=== PATIENT | male | born 1950 | race Caucasian/White ===

== ENCOUNTER 2016-11-09 02:37 | Emergency (ER) | payer BC, OTHER ==
[~2016-11-09] VITALS: Ht 170.2 cm; Wt 83.0 kg
[~2016-11-09 02:37] MED LIST: ACET-1138 PO; ASPEC325 PO; ATOR-26 PO; EZET10TA63 PO; LISI10TA PO; RXC5 PO; TAMS0.4C38 PO
[2016-11-09 02:40] VITALS: Ht 170.2 cm; Wt 83.0 kg
[2016-11-09] MEDS ORDERED: ONDANSETRON INJ 2 MG/ML 2 ML VIAL IV STA ×2 (02:50→03:35)
[2016-11-09] MEDS ORDERED: MoRPHine SULFATE 4 MG/ML 1 ML CARP\\VIAL IV STA ×2 (02:50→03:35)
[2016-11-09 02:51] VITALS: TEMP 36.6; O2SAT 100
--- NOTE | 2016-11-09 02:57 | EMERGENCY ROOM VISIT NOTE ---
History Report prepared by Yukiibulysses: Alyson Villa Under the Supervision of: Carter RomanoO. First contact with patient: 02:43 Chief Complaint: FLANK PAIN Stated Complaint: RIGHT SIDE PAIN,HAD COLONOSCOPY TODAY History of Present Illness The patient is a 66 year old male who presents to the Emergency Room with complaints of improved right upper quadrant abdominal pain starting about 20 minutes ago. He reports a sudden onset of his pain. He felt lightheaded and nauseated from the pain but denies vomiting. Prior to going to sleep, the patient had some back pain which was different from his current pain. He currently rates a pain intensity of 6-8/10 which has improved from the initial pain intensity of 10+/10. He had routine screening colonoscopy earlier today which showed diverticulosis but was otherwise negative. He did not have any pain after the colonoscopy. The patient denies fevers, chills, urinary symptoms , issues with bowel movement, or any other complaints. Source of History: patient Onset: about 20 minutes ago Position: abdomen (RUQ) Symptom Intensity: 6-8/10 currently Timing: other (improved) Associated Symptoms: + nausea, No chills, No fevers, No urinary symptoms, No vomiting Review of Systems See HPI for pertinent positives and negatives. A total of ten systems were reviewed and were otherwise negative. Past Medical & Surgical Medical Problems: (1) Left Knee DJD Family History Patient reports no known family medical history. Social History Smoking Status: Never Smoker Marital Status: Occupation Status: employed Current/Historical Medications Scheduled Aspirin (Aspirin Ec), 81 MG PO DAILY Atorvastatin (Lipitor), 80 MG PO HS Ezetimibe (Zetia), 10 MG PO HS Lisinopril (Prinivil), 10 MG PO HS Tamsulosin Hcl (Flomax), 0.4 MG PO QAM Allergies Coded Allergies: No Known Allergies (Unverified , 11/09/16) Physical Exam Vital Signs Date Time Temp Pulse Resp B/P Pulse Ox O2 Delivery O2 Flow Rate FiO2 11/09/16 05:00 74 18 163/89 99 Room Air 11/09/16 04:02 56 18 141/89 100 Room Air 11/09/16 02:53 58 11/09/16 02:51 100 Room Air 11/09/16 02:51 36.6 11/09/16 02:40 59 20 151/86 99 Room Air Physical Exam GENERAL: Awake, alert, well-appearing, in no distress HENT: Normocephalic, atraumatic. Oropharynx unremarkable. EYES: Normal conjunctiva. Sclera non-icteric. NECK: Supple. No nuchal rigidity. FROM. No JVD. RESPIRATORY: Clear to auscultation. CARDIAC: Regular rate, normal rhythm. Extremities warm and well perfused. Pulses equal. ABDOMEN: Soft, non-distended. Mild tenderness to palpation in the right upper quadrant. No rebound or guarding. No masses. RECTAL: Deferred. MUSCULOSKELETAL: Chest examination reveals no tenderness. The back is symmetrical on inspection without obvious abnormality. There is no CVA tenderness to palpation. No joint edema. LOWER EXTREMITIES: Calves are equal size bilaterally and non-tender. No edema. No discoloration. NEURO: Normal sensorium. No sensory or motor deficits noted. SKIN: No rash or jaundice noted. Medical Decision & Procedures ER Provider Diagnostic Interpretation: CT: Radiology results as stated below per my review and radiologist interpretation CT ABDOMEN AND PELVIS The visualized lower thorax is unremarkable. The liver, gallbladder, spleen, pancreas and left adrenal gland are unremarkable. Right adrenal gland lesion measuring up to 4.2 cm which is incompletely characterized. In the absence of prior imaging demonstrates stability, consider nonemergent adrenal protocol CT or MRI for further catheterization. Cyst within the left kidney. Otherwise, the kidneys, ureters, and urinary bladder are unremarkable. Mild enlargement of the prostate gland. Noninflamed colonic diverticulosis. The appendix is not visualized. No free fluid. No free air. No acute osseous abnormalities. Radiologist: Mauro Madrigal MD Laboratory Results 11/09/16 02:50 Red Blood Count 4.64, Mean Corpuscular Volume 89.9, Mean Corpuscular Hemoglobin 30.2, Mean Corpuscular Hemoglobin Concent 33.6, Mean Platelet Volume 9.6, Neutrophils (%) (Auto) 45.9, Lymphocytes (%) (Auto) 31.5, Monocytes (%) (Auto) 18.4, Eosinophils (%) (Auto) 3.6, Basophils (%) (Auto) 0.3, Neutrophils # (Auto ) 3.43, Lymphocytes # (Auto) 2.35, Monocytes # (Auto) 1.37, Eosinophils # (Auto ) 0.27, Basophils # (Auto) 0.02 11/09/16 02:50 Test 11/09/16 02:50 White Blood Count 7.46 K/uL (4.8-10.8) Red Blood Count 4.64 M/uL (4.7-6.1) Hemoglobin 14.0 g/dL (14.0-18.0) Hematocrit 41.7 % (42-52) Mean Corpuscular Volume 89.9 fL (80-100) Mean Corpuscular Hemoglobin 30.2 pg (25-34) Mean Corpuscular Hemoglobin Concent 33.6 g/dl (32-36) Platelet Count 219 K/uL (130-400) Mean Platelet Volume 9.6 fL (7.4-10.4) Neutrophils (%) (Auto) 45.9 % Lymphocytes (%) (Auto) 31.5 % Monocytes (%) (Auto) 18.4 % Eosinophils (%) (Auto) 3.6 % Basophils (%) (Auto) 0.3 % Neutrophils # (Auto) 3.43 K/uL (1.4-6.5) Lymphocytes # (Auto) 2.35 K/uL (1.2-3.4) Monocytes # (Auto) 1.37 K/uL (0.11-0.59) Eosinophils # (Auto) 0.27 K/uL (0-0.5) Basophils # (Auto) 0.02 K/uL (0-0.2) RDW Standard Deviation 48.7 fL (36.4-46.3) RDW Coefficient of Variation 14.7 % (11.5-14.5) Immature Granulocyte % (Auto) 0.3 % Immature Granulocyte # (Auto) 0.02 K/uL (0.00-0.02) Anion Gap 8.0 mmol/L (3-11) Est Creatinine Clear Calc Drug Dose 68.1 ml/min Estimated GFR () 80.6 Estimated GFR (Non- 69.6 BUN/Creatinine Ratio 25.8 (10-20) Calcium Level 8.5 mg/dl (8.5-10.1) Total Bilirubin 0.3 mg/dl (0.2-1) Direct Bilirubin < 0.1 mg/dl (0-0.2) Aspartate Amino Transf (AST/SGOT) 30 U/L (15-37) Alanine Aminotransferase (ALT/SGPT) 37 U/L (12-78) Alkaline Phosphatase 61 U/L (45-117) Total Protein 6.9 gm/dl (6.4-8.2) Albumin 3.9 gm/dl (3.4-5.0) Lipase 174 U/L (73-393) Laboratory results reviewed by me Medications Administered Medications (Trade) Dose Ordered Sig/Deandre Route Start Time Stop Time Status Last Admin Dose Admin Morphine Sulfate (MoRPHine SULFATE INJ) 4 mg NOW STAT IV 11/09/16 02:50 11/09/16 02:52 DC 11/09/16 02:57 4 MG Ondansetron HCl (Zofran Inj) 4 mg NOW STAT IV 11/09/16 02:50 11/09/16 02:52 DC 11/09/16 02:57 4 MG Morphine Sulfate (MoRPHine SULFATE INJ) 4 mg NOW STAT IV 11/09/16 03:35 11/09/16 03:37 DC 11/09/16 03:54 4 MG Ondansetron HCl (Zofran Inj) 4 mg NOW STAT IV 11/09/16 03:35 11/09/16 03:37 DC 11/09/16 03:54 4 MG Simethicone (Mylicon Chew Tab) 80 mg NOW STAT PO 11/09/16 04:30 11/09/16 04:32 DC 11/09/16 04:37 80 MG Al Hydrox/Mg Hydrox/Simethicone (Maalox Max Susp) 30 ml NOW STAT PO 11/09/16 04:30 11/09/16 04:32 DC 11/09/16 04:37 30 ML Dicyclomine HCl (Bentyl Inj) 20 mg NOW ONCE IM 11/09/16 04:45 11/09/16 04:46 DC 11/09/16 04:59 20 MG ECG Indication: abdominal pain Rate (beats per minute): 70 Rhythm: sinus rhythm Findings: PVC (occasional), no ectopy, other (normal axis) ED Course 0243: The patient was evaluated in room B03B. A complete history and physical exam was performed. 0250: Zofran Inj 4 mg IV, Morphine Sulfate 4 mg IV 0335: Zofran Inj 4 mg IV, Morphine Sulfate 4 mg IV 0426: I reevaluated the patient who continues to complain of the pain. 0430: Maalox Max Susp 30 ml PO, Simethicone 80 mg PO 0445: Bentyl Inj 20 mg IM 0500: I reevaluated the patient. Discussed results and discharge instructions: He verbalized understanding and agreement. The patient is ready for discharge. Medical Decision Differential diagnosis includes but is not limited to kidney stone, colitis, gas pain, bowel perforation, pain status post colonoscopy. Patient was given IV opiates, simethicone, Maalox, Bentyl. On repeat examination he stated that he felt improved. Patient's CT did not show any evidence of perforated bowel. I discussed the evaluation including the lab work as well as a CAT scan with the patient patient's at bedside. Patient states that he was feeling much improved at 5 AM and was able to be discharged Impression Primary Impression: Abdominal cramps Scribe Attestation The scribe's documentation has been prepared under my direction and personally reviewed by me in its entirety. I confirm that the note above accurately reflects all work, treatment, procedures, and medical decision making performed by me. Departure Information Dispostion Home / Self-Care Referrals Toya Ponce M.D. (PCP) Forms HOME CARE DOCUMENTATION FORM, IMPORTANT VISIT INFORMATION Patient Instructions Abdominal Pain, My [facility] Additional Instructions Continue taking simethicone for gas pain return for increased pain or for any concerns
[2016-11-09] MEDS ORDERED: OPTIRAY 320 IV PRN (03:00)
[2016-11-09 03:04] LABS: BASO % 0.3 %; BASO ABS # 0.02 K/uL (0-0.2); COMPLETE YES; EOS % 3.6 %; HEMATOCRIT 41.7 % (42-52); IG% 0.3 %; LYMPH % 31.5 %; LYMPH ABS # 2.35 K/uL (1.2-3.4); MEAN CELL VOLUME 89.9 fL (80-100); MEAN CORPUSCULAR HEMOGLOBIN 30.2 pg (25-34); MEAN CORPUSCULAR HGB CONC 33.6 g/dl (32-36); MEAN PLATELET VOLUME 9.6 fL (7.4-10.4); MONO % 18.4 %; NEUT % 45.9 %; PLATELET COUNT 219 K/uL (130-400); RED BLOOD COUNT 4.64 M/uL (4.7-6.1); WHITE BLOOD COUNT 7.46 K/uL (4.8-10.8)
[2016-11-09 03:28] LABS: ALT/SGPT 37 U/L (12-78); AST/SGOT 30 U/L (15-37); BLOOD UREA NITROGEN 28 mg/dl (7-18); BUN/CREATININE RATIO 25.8 (10-20); CALCIUM 8.5 mg/dl (8.5-10.1); CARBON DIOXIDE 28 mmol/L (21-32); CHLORIDE 107 mmol/L (98-107); GLUCOSE 123 mg/dl (70-99); POTASSIUM 4.1 mmol/L (3.5-5.1); SODIUM 143 mmol/L (136-145)
[2016-11-09 03:31] LABS: ALKALINE PHOSPHATASE 61 U/L (45-117)
[2016-11-09] MEDS ORDERED: ASPI81TA28 PO (03:49)
[2016-11-09] MEDS ORDERED: SIMETHICONE 80 MG CHEW PO STA (04:30)
[2016-11-09] MEDS ORDERED: ALUMINUM/MAGNESIUM/SIMETH (MAALOX MAX) 30 ML UDC PO STA (04:30)
[2016-11-09] MEDS ORDERED: DICYCLOMINE HCL 10 MG/ML 2 ML AMP IM ONE (04:45)
[2016-11-09 05:00] VITALS: BP 163/89; PULSE 74; O2SAT 99
--- NOTE | 2016-11-09 07:00 | DIAGNOSTIC IMAGING REPORT ---
ABDOMEN AND PELVIS CT WITH IV CONTRAST CT DOSE: 370.32 mGy.cm HISTORY: Flank pain pain TECHNIQUE: Multiaxial CT images of the abdomen and pelvis were performed following the use of intravenous contrast. COMPARISON STUDY: None. FINDINGS: Lung bases are clear. Liver is uniform throughout. Right adrenal mass measuring 3.8 x 2.4 cm. The left adrenal is unremarkable. There is a left renal cyst. Kidneys negative for hydronephrosis. Bowel pattern is considered nonobstructive throughout. Mild chronic colonic diverticulosis. No evidence for acute diverticulitis. IMPRESSION: 1. Right adrenal mass with multi phase CT evaluation of the adrenals recommended as follow-up. 2. Mild scattered colonic diverticulosis. 3. Study is otherwise negative Electronically signed by: Estuardo Casanova M.D. 11/09/2016 6:59 AM Dictated Date/Time: 11/09/2016 6:56 AM
== END 2016-11-09 05:30 | disposition home or self-care (01) ==
LOC: C.EDB 02:38
DX: R10.11 Right upper quadrant pain (principal); Z79.82 Long term (current) use of aspirin; Z79.899 Other long term (current) drug therapy

== ENCOUNTER → 2016-11-16 | Outpatient (CLI) | payer BC ==
[~2016-11-16] MED LIST changes: -ACET-1138 PO; -ASPEC325 PO; +ASPI81TA28 PO; +GADAVIST IV PRN; -RXC5 PO
--- NOTE | 2016-11-16 10:30 | DIAGNOSTIC IMAGING REPORT ---
ABDOMINAL MRI WITH AND WITHOUT INTRAVENOUS CONTRAST CLINICAL HISTORY: ABNORMAL ABDOMINAL CT SCAN. Follow-up adrenal mass. TECHNIQUE: Multiplanar multisequence MRI of the abdomen was performed both before and after the intravenous administration of contrast to evaluate the adrenal glands. COMPARISON STUDY: Abdomen and pelvis CT 11/09/2016. FINDINGS: There is a 4.0 x 2.8 cm right adrenal gland lesion. This demonstrates slightly thickened peripheral enhancement. There is a enhancing septation and a 2.0 x 1.1 cm enhancing intramural nodule anteriorly. This is not consistent with a benign adrenal adenoma. Normal left adrenal gland. A 2.1 cm cyst within the upper pole of the left kidney. The visualized liver, spleen, pancreas, right kidney, and gallbladder are unremarkable. No retroperitoneal lymphadenopathy. IMPRESSION: A 4.0 x 2.8 cm right adrenal gland mass which is not consistent with a benign adrenal adenoma as described above. This may represent a pheochromocytoma or adrenal cortical carcinoma. Surgical consultation is recommended. Electronically signed by: Simon Hines M.D. 11/16/2016 10:28 AM Dictated Date/Time: 11/16/2016 10:17 AM
== END | disposition home or self-care (01) ==
LOC: C.MRIBC 08:32
PROVIDERS: ATTEND Family Medicine
DX: R93.5 Abnormal findings on diagnostic imaging of other abdominal regions, including retroperitoneum (principal); E27.9 Disorder of adrenal gland, unspecified

== ENCOUNTER → 2017-03-01 | Outpatient (CLI) | payer BC ==
[~2017-03-01] MED LIST changes: -GADAVIST IV PRN
--- NOTE | 2017-03-01 12:11 | DIAGNOSTIC IMAGING REPORT ---
PET/CT SKULL-THIGH HISTORY: Adrenal neoplasm MALIGNANT NEOPLASM TECHNIQUE: PET/CT was performed from the base of the skull through the pelvis following the intravenous administration of 15.4 mCi of F18-FDG. Non-contrast CT imaging was performed over the same range without breath-hold for attenuation correction of PET images and anatomic correlation, but not for primary interpretation as it is not of standard diagnostic quality. CT DOSE: COMPARISON: MRI abdomen 11/16/2016. CT abdomen and pelvis 11/09/2016 FINDINGS: HEAD AND NECK: No significant metabolically active adenopathy. Oral and hypopharyngeal metabolic activity about the secondary to patient motion. Progressive increased activity lower cervical spine. CHEST: Several metabolically active nodes in the right hilar and mid mediastinal region. Largest node has SUV characteristics of 7.7. Minimal dimension is 1.7 cm at this site. Several additional right hilar and precarinal nodes demonstrating SUVs of 6.5. Maximum dimensions very from 1.0 to 1.4 cm. Physiologic activity within the myocardium. Metabolically active subcarinal adenopathy with SUV characteristics to 5.9 measuring 1.7 cm. 7 mm spiculated nodular density peripheral aspect right midlung showing no significant increase in activity. This may be secondary to the small size of the nodular density in question. Abdomen and pelvis: Several metabolically active ribs in the right and to lesser extent left hemithorax. Several foci of increased metabolic activity involving the liver superior right hepatic dome with the largest lesion measures 1.2 cm with SUVs extend to 4.3. Several smaller metabolically active lesions of the superior right hepatic lobe are present. Prior resection of the patient's right adrenal nodule. Possible low-level metabolically active left adrenal nodule with SUV characteristics of 2.7. Several foci of increased metabolic activity involving the thoracolumbar spine as well as right hemipelvis and left central sacrum. Activity characteristics extend to 4.8. Small left posterior bladder diverticulum. MUSCULOSKELETAL: Findings of widespread bony metastatic disease throughout the spine, pelvis, and iliac bone regions. IMPRESSION: 1. Findings of widespread metastatic disease involving the liver, chest, mediastinum, and to lesser extent periaortic regions. 2. Widespread bony metastatic disease as discussed. 3. Pulmonary nodularity in the right demonstrating no significant increase in activity possibly secondary to the small maximum dimensions of the lesions. 4. Possible small metabolically active lesion left adrenal gland. The above report was generated using voice recognition software. It may contain grammatical, syntax or spelling errors. Electronically signed by: Estuardo Casanova M.D. 03/01/2017 12:09 PM Dictated Date/Time: 03/01/2017 11:49 AM
== END | disposition home or self-care (01) ==
LOC: C.PET 08:48
PROVIDERS: ATTEND Urology
DX: C80.1 Malignant (primary) neoplasm, unspecified (principal); C79.72 Secondary malignant neoplasm of left adrenal gland; C78.7 Secondary malignant neoplasm of liver and intrahepatic bile duct; C79.89 Secondary malignant neoplasm of other specified sites; C78.1 Secondary malignant neoplasm of mediastinum; C79.51 Secondary malignant neoplasm of bone; R91.8 Other nonspecific abnormal finding of lung field

== ENCOUNTER → 2017-03-16 | Outpatient (CLI) | payer BC ==
--- NOTE | 2017-03-16 14:10 | DIAGNOSTIC IMAGING REPORT ---
C-SPINE ROUTINE 4 OR 5 VIEWS CLINICAL HISTORY: Left shoulder pain. Possible radiculopathy. COMPARISON STUDY: No previous studies for comparison. FINDINGS: There are advanced multilevel degenerative changes. The prevertebral soft tissues are normal. There is uncovertebral joint spurring with multilevel foraminal narrowing. IMPRESSION: 1. No acute fractures or traumatic subluxations 2. Advanced multilevel degenerative changes with multilevel foraminal narrowing Electronically signed by: Preston Andre M.D. 03/16/2017 2:09 PM Dictated Date/Time: 03/16/2017 2:08 PM
--- NOTE | 2017-03-16 14:12 | DIAGNOSTIC IMAGING REPORT ---
LEFT SCAPULA 2 VIEWS CLINICAL HISTORY: Left shoulder pain. FINDINGS: 2 views of the left scapula are obtained. No prior studies are available for comparison at the time of dictation. The skeletal structures are well mineralized. There is no radiographic evidence of left scapular fracture. Productive degenerative changes seen at the acromioclavicular joint. The overlying soft tissues are normal as imaged. The visualized left lung parenchyma appears clear. IMPRESSION: There is no radiographic evidence of left scapular fracture. Electronically signed by: Les Barrios M.D. 03/16/2017 2:11 PM Dictated Date/Time: 03/16/2017 2:09 PM
--- NOTE | 2017-03-16 14:27 | DIAGNOSTIC IMAGING REPORT ---
L RIBS UNILATERAL WITH PA CHEST (5 views) CLINICAL HISTORY: DYSPHAGIA,LEFT SHOULDER PAIN COMPARISON STUDY: Chest x-ray dated 04/28/2016 FINDINGS: Erect chest reveals no pneumothorax. No left-sided rib fractures are identified. No destructive lesions are visualized on conventional radiographic imaging. IMPRESSION: No left-sided rib fractures identified. Electronically signed by: Preston Andre M.D. 03/16/2017 2:25 PM Dictated Date/Time: 03/16/2017 2:24 PM
== END | disposition home or self-care (01) ==
LOC: C.RAD1850 13:42
PROVIDERS: ATTEND Family Medicine
DX: M25.519 Pain in unspecified shoulder (principal); R13.10 Dysphagia, unspecified; M89.8X8 Other specified disorders of bone, other site

== ENCOUNTER → 2017-03-20 | Outpatient (CLI) | payer BC ==
--- NOTE | 2017-03-20 08:42 | DIAGNOSTIC IMAGING REPORT ---
(BARIUM SWALLOW) ESOPHAGUS CLINICAL HISTORY: 66 years-old Male presenting with trouble swallowing, food sticking in the upper esophagus for one week, voice change, coughing. TECHNIQUE: A standard air contrast barium esophagram is performed. Multiple spot images of the esophagus are acquired both upright and prone. COMPARISON: None. FINDINGS: The patient was able to ingest barium, although delayed passage of barium through the upper esophagus was observed. A prominent intermittent point of constriction at the level of C5-6 noted, most prominently along the posterior wall. No evidence of a diverticulum. Silent deep penetration and aspiration was observed, which prematurely terminated the examination. The remainder of the esophagus demonstrated a normal mucosal pattern. No evidence of a mass lesion. The gastroesophageal junction distended normally. Fluoroscopy dosage (mGy): Not available. Fluoroscopy time: 2 minutes. Number of fluoroscopic spot images: 27. IMPRESSION: 1. 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 This can be a idiopathic and asymptomatic, secondary to cricopharyngeal muscle spasm/aplasia, or cricopharyngeus muscle hypertrophy and/or fibrosis. Direct visualization could be considered as clinically warranted. 2. Overall limited study. This limits the gastric sensitivity for gastroesophageal reflux. 3. Silent aspiration. A dedicated swallow evaluation is recommended. The report will be called/faxed according to standard departmental protocol. Electronically signed by: Saroj Martinez M.D. 03/20/2017 8:41 AM Dictated Date/Time: 03/20/2017 8:18 AM
== END | disposition home or self-care (01) ==
LOC: C.RAD 07:58
PROVIDERS: ATTEND Family Medicine
DX: R13.10 Dysphagia, unspecified (principal)

== ENCOUNTER → 2017-04-11 | Outpatient (CLI) | payer BC ==
[~2017-04-11] MED LIST changes: +GADAVIST IV PRN
--- NOTE | 2017-04-11 13:59 | DIAGNOSTIC IMAGING REPORT ---
MRI OF THE BRAIN COMBO CLINICAL HISTORY: Lung cancer. COMPARISON STUDY: No priors. TECHNIQUE: MRI of the brain was performed utilizing various T1 and T2-weighted sequences in the axial, sagittal, and coronal planes. Contrast-enhanced sequences were acquired following the administration of 7.6 cc of Gadavist. FINDINGS: Brain parenchyma: There is mild patchy subcortical and periventricular microangiopathic disease. There are numerous (greater than 10) enhancing lesions identified throughout the brain parenchyma consistent with multifocal metastatic disease. The largest lesion measures 1.3 cm as seen in the anterior right temporal lobe on axial postcontrast image #8. There is surrounding edema seen on the FLAIR sequence, and trace hemorrhage is likely identified within this lesion. Additional franchise sales representative lesions are seen in the left frontal lobe measuring 5 mm on image #15, in the left parietal white matter measuring 5 mm on image #15, and in the right cerebellar peduncle image #8 measuring 8 mm. There is no significant mass effect or midline shift. There is no restricted diffusion to suggest acute ischemia. No extra-axial fluid collection is seen. The cerebellar tonsils are normal in configuration. Ventricles, sulci, and cisterns: Normal in configuration. Pituitary and sella: Unremarkable. Intracranial vasculature: Normal flow voids are maintained at the skull base. Orbits: The bony orbits are grossly intact. Orbital contents are normal in appearance. Sinuses and mastoids: Clear. Calvarium: No destructive calvarial lesion is seen. Cervical cord: Partially visualized cervical spinal cord is normal in morphology and signal intensity. IMPRESSION: 1. Findings are consistent with multifocal intracranial metastatic disease as above. 2. There is likely trace hemorrhage within the largest lesion located in the right temporal lobe with surrounding edema. 3. There is no significant mass effect or evidence of acute ischemia. Electronically signed by: Les Barrios M.D. 04/11/2017 1:58 PM Dictated Date/Time: 04/11/2017 1:50 PM
== END | disposition home or self-care (01) ==
LOC: C.MRIBC 12:31
PROVIDERS: ATTEND Internal Medicine Hematology & Oncology
DX: C34.00 Malignant neoplasm of unspecified main bronchus (principal)

== ENCOUNTER → 2017-04-18 | Outpatient (CLI) | payer BC ==
--- NOTE | 2017-04-18 09:38 | DIAGNOSTIC IMAGING REPORT ---
CERVICAL SPINE COMBO HISTORY: Neoplasm MALIGNANT NEOPLASM OF BRAIN TECHNIQUE: Multiplanar multisequence MRI of the cervical spine was performed both before and after the use of intravenous contrast. COMPARISON STUDY: PET scan dated 03/01/2017 FINDINGS: Signal characteristics indicate generalized degenerative change throughout the entire cervical region. Sagittal T1 images demonstrate decreased signal with postcontrast enhancement of the mid and anterior arch of C1. This shows evidence of postcontrast enhancement. There is considerable degenerative disc changes throughout. Partial postcontrast enhancement is identified which may be consistent with degenerative etiology. Postcontrast sagittal images demonstrate multiple nodular foci of enhancement within the spinal canal throughout the entire cervical region. The largest is immediately posterior to the C6 vertebral body having maximum cephalocaudal dimension of 10 mm with a maximum anterior to posterior dimension of 6 mm. Transaxial images demonstrate this enhancing focus to be within the anterior aspect of the cervical cord specifically. Multiple punctate foci of increased signal are identified within the surface of the cervical cord throughout the entire cervical region. These foci are several millimeters in maximum dimension and general measure 2 to 3 mm. Larger foci of increased signal are identified in the low cervical and upper thoracic region. These are concentrated at the C7-T1 level as well as at T2 and T4. Broad-based bulging disc are identified all levels of the cervical region with only mild impact upon the cervical cord. IMPRESSION: 1. Severe degenerative disc change at the entire cervical region with evidence for postcontrast enhancing nodules on the surface of the cervical cord from C1 through T2. 2. In addition, there is a lesion within the cervical cord at the C6 level measuring 10 x 6 mm. 3. Bony metastatic change involving the mid to anterior arch of C1, as well as most likely within the endplates of several vertebral bodies. 4. The paranasal consistent with that of diffuse metastatic disease involving all soft tissues of the cervical spine as well as bony structures of the cervical vertebral body structures. The above report was generated using voice recognition software. It may contain grammatical, syntax or spelling errors. Electronically signed by: Estuardo Casanova M.D. 04/18/2017 9:37 AM Dictated Date/Time: 04/18/2017 9:16 AM
== END | disposition home or self-care (01) ==
LOC: C.MRIBC 07:47
PROVIDERS: ATTEND Radiology Radiation Oncology
DX: C34.90 Malignant neoplasm of unspecified part of unspecified bronchus or lung (principal); C79.31 Secondary malignant neoplasm of brain

== ENCOUNTER → 2017-07-06 | Outpatient (CLI) | payer BC ==
--- NOTE | 2017-07-06 17:13 | DIAGNOSTIC IMAGING REPORT ---
BRAIN COMBO CLINICAL HISTORY: NEOPLASM OF BRAIN metastatic disease COMPARISON STUDY: 04/11/2017 TECHNIQUE: Utilizing a 1.5 Yaritza magnet and dedicated coil, multiplanar, multiecho imaging of the brain was performed pre and postcontrast administration. IV administration of 10.5 mL of Gadavist contrast was uneventful. FINDINGS: Findings of intracranial metastatic disease is considered improved. Multiple foci of increased signal throughout both cerebral hemispheres are stable to slightly diminished. The degree of postcontrast enhancement is diminished as well. Several metastatic foci primarily involving the cerebellum and pontine medullary region have diminished in size and/or resolved. There has been no interval increase in size or enhancement characteristics of a lesion previously described. Several small lesions within the cerebral hemispheres bilaterally have resolved. The periventricular foci are diminished in size by no last and 1.5 mm at each location. Intensity characteristics of enhancement are again diminished. The lesion previously measuring 1.3 cm medial right temporal lobe now measures 7 mm and again shows diminished enhancement characteristics. Potentially is a lesion of the inferior left temporal fossa well seen only on the transaxial images which is stable to improved. Ventricular system is midline. There is no significant edematous change. There is no midline shift. Focus of increased signal right temporal lobe centrally has diminished in prominence. IMPRESSION: 1. Improving intracranial metastatic change. 2. Diminished size, number of enhancing lesions, as well as enhancement characteristics of all lesions. 3. No evidence for new interval or progressive findings. The above report was generated using voice recognition software. It may contain grammatical, syntax or spelling errors. Electronically signed by: Estuardo Casanova M.D. 07/06/2017 5:12 PM Dictated Date/Time: 07/06/2017 5:03 PM
--- NOTE | 2017-07-06 17:25 | DIAGNOSTIC IMAGING REPORT ---
MRI OF THE CERVICAL SPINE WITH AND WITHOUT CONTRAST CLINICAL HISTORY: Lung cancer. Brain and cervical spinal metastases status post radiation therapy. COMPARISON: MRI of the cervical spine April 18, 2017. TECHNIQUE: Utilizing a 1.5 Yaritza magnet and dedicated coil, multiplanar, multiecho imaging of the cervical spine was performed before and after intravenous administration of 7 of Gadavist. FINDINGS: Alignment of the cervical spine is anatomic. Multiple Schmorl's nodes are noted within the cervical spine as well as the upper thoracic spine. Cervical cord signal and caliber are normal. The numerous enhancing intradural extramedullary lesions shown on MRI of April 18, 2017 are no longer visualized consistent with a treatment response. No abnormal enhancement within the cervical canal is noted on this examination. Paravertebral soft tissues are unremarkable. There is no suspicious marrow replacement within the cervical spine by MRI. Moderate multilevel degenerative disc disease and facet arthrosis is present. C2-C3: The central canal and neural foramen are patent. C3-C4: There is mild central canal narrowing due to disc bulge. There is severe right and moderate left neural foraminal stenosis due to facet arthrosis and uncovertebral hypertrophy. C4-C5: Moderate narrowing of the central canal is noted. Severe left and right neural foraminal stenosis is noted. C5-C6: There is moderate narrowing of the central canal. Severe left and moderate right neural foraminal stenosis is present. C6-C7: There is mild to moderate narrowing of the central canal. There is moderate bilateral neural foraminal stenosis C7-T1: The central canal and neural foramen are patent. IMPRESSION: 1. 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 No pathologic enhancement within the cervical canal on current exam. 2. Moderate multilevel degenerative disc disease. Moderate multilevel central canal stenosis with severe multilevel neural foraminal stenosis within the cervical spine. Electronically signed by: Aadlberto Camp M.D. 07/06/2017 5:24 PM Dictated Date/Time: 07/06/2017 5:07 PM
== END | disposition home or self-care (01) ==
LOC: C.MRI 15:24
PROVIDERS: ATTEND Radiology Radiation Oncology
DX: C79.31 Secondary malignant neoplasm of brain (principal)

== ENCOUNTER → 2017-10-23 | Outpatient (CLI) | payer BC ==
--- NOTE | 2017-10-23 09:41 | DIAGNOSTIC IMAGING REPORT ---
BRAIN COMBO CLINICAL HISTORY: 67 years-old Male presenting with lung cancer with brain and spinal cord metastases, status post radiation, evaluate treatment response. TECHNIQUE: Multisequence, multiplanar MR imaging of the brain was performed before and after the administration of intravenous contrast. IV contrast: 7.5 mL of Gadavist. COMPARISON: 07/06/2017. FINDINGS: Ventricles and sulci normal in size. Interval decrease in conspicuity of multifocal metastatic lesions. Faint enhancement again noted in the right anterior temporal lobe (series 19 image 8), right brachium pontis (series 19 image 7), left dorsal kavita (series 19 image 8), posterior left upper lobe (series 19 image 12), periventricular white matter at the atrium of the left lateral ventricle (series 19 image 15), left frontal lobe (series 19 image 15). Numerous additional sites of prior enhancement are no longer visualized. These sites have been marked on series 19. No new foci of abnormal enhancement. Periventricular white matter foci of T2/FLAIR hyperintensity is nonspecific and in part relates to metastatic disease. No mass effect or midline shift. No restricted diffusion to suggest acute ischemia. No hemorrhage. No extra-axial fluid collection. T2 skull base flow voids preserved. Minimal mucosal thickening in posterior ethmoid air cells. Bone marrow signal intensity within the calvarium within normal limits. IMPRESSION: 1. Continued interval decrease in conspicuity of multifocal enhancing metastatic lesions. No new lesion to suggest progression of disease. No acute intracranial pathology. Electronically signed by: Saroj Martinez M.D. 10/23/2017 9:39 AM Dictated Date/Time: 10/23/2017 9:29 AM
--- NOTE | 2017-10-23 09:42 | DIAGNOSTIC IMAGING REPORT ---
MRI OF THE CERVICAL SPINE WITH AND WITHOUT CONTRAST CLINICAL HISTORY: Lung adenocarcinoma with brain and spinal cord metastases status post radiation therapy. COMPARISON: MRI of the cervical spine July 06, 2017. TECHNIQUE: Utilizing a 1.5 Yaritza magnet and dedicated coil, multiplanar, multiecho imaging of the cervical spine was performed before and after intravenous administration of 7.5 of Gadavist. FINDINGS: The MRI of the brain will be reported separately. Alignment of the cervical spine is anatomic. Multiple Schmorl's nodes are noted within the cervical spine as well as the upper thoracic spine. Cervical cord signal and caliber are normal. No intracanalicular masses or areas of pathologic enhancement are identified. Paravertebral soft tissues are unremarkable. There is no suspicious marrow replacement within the cervical spine by MRI. Moderate multilevel degenerative disc disease and facet arthrosis is present. C2-C3: The central canal and neural foramen are patent. C3-C4: There is mild central canal narrowing due to disc bulge. There is severe right and moderate left neural foraminal stenosis due to facet arthrosis and uncovertebral hypertrophy. C4-C5: Moderate narrowing of the central canal is noted. Severe left and right neural foraminal stenosis is noted. C5-C6: There is moderate narrowing of the central canal. Severe left and moderate right neural foraminal stenosis is present. C6-C7: There is mild to moderate narrowing of the central canal. There is moderate bilateral neural foraminal stenosis C7-T1: The central canal and neural foramen are patent. IMPRESSION: 1. No evidence of recurrent malignancy within the cervical spine by MRI. No pathologic enhancement within the cervical canal on current exam. 2. Moderate multilevel degenerative disc disease. Moderate multilevel central canal stenosis with severe multilevel neural foraminal stenosis within the cervical spine. Electronically signed by: Adalberto Camp M.D. 10/23/2017 9:41 AM Dictated Date/Time: 10/23/2017 9:30 AM
== END | disposition home or self-care (01) ==
LOC: C.MRIBC 07:57
PROVIDERS: ATTEND Radiology Radiation Oncology
DX: C79.31 Secondary malignant neoplasm of brain (principal); M50.30 Other cervical disc degeneration, unspecified cervical region